=== PATIENT | female | born 1990 | race Caucasian/White ===

== ENCOUNTER 2018-06-25 16:30 | Inpatient (IN) | payer MEDICAID ==
[~2018-06-25] VITALS: Ht 157.5 cm; Wt 75.0 kg
[~2018-06-25 16:30] MED LIST: CLIN300C85 PO; IBUP-1984 PO; NITR100C PO; NITR100C6 PO; PHEN-824 PO
[2018-06-25 17:32] LABS: BASOPHILS # (AUTO) 0.1 X10'3 (0-0.2); BASOPHILS % (AUTO) 0.7 % (0-1); EOSINOPHILS % (AUTO) 0 % (0-6); HEMATOCRIT 40.6 % (35.0-45.0); HEMOGLOBIN 13.2 g/dl (12.0-16.0); LYMPHOCYTES # (AUTO) 2.4 X10'3 (1.1-4.8); LYMPHOCYTES % (AUTO) 16.8 % (21-51); MEAN CORPUSCULAR HEMOGLOBIN 28.8 PG (27.0-31.0); MEAN CORPUSCULAR HGB CONC 32.5 % (33.0-36.5); MEAN CORPUSCULAR VOLUME 88.5 FL (78-98); MEAN PLATELET VOLUME 9.4 FL (7.4-10.4); MONOCYTES # (AUTO) 1.1 X10'3 (0-0.9); MONOCYTES % (AUTO) 7.6 % (2-12); NEUTROPHILS # (AUTO) 10.8 X10'3 (1.8-7.7); NEUTROPHILS % (AUTO) 74.9 % (42-75); PLATELET COUNT 351 X10'3 (140-440); RED BLOOD COUNT 4.59 X10'6 (4.20-5.60); RED CELL DISTRIBUTION WIDTH 13.6 % (11.5-14.5); WHITE BLOOD COUNT 14.4 X10'3 (4.5-11.0)
[2018-06-25 17:46] LABS: ALANINE AMINOTRANSFERASE 25 U/L (12-78); ALBUMIN 3.6 G/DL (3.4-5.0); ALBUMIN/GLOBULIN RATIO 0.8 (1.1-1.5); ALKALINE PHOSPHATASE 56 IU/L (46-116); ANION GAP 9 (8-16); ASPARTATE AMINO TRANSFERASE 17 U/L (10-37); BILIRUBIN,TOTAL 0.5 MG/DL (0.1-1.0); BLOOD UREA NITROGEN 8 MG/DL (7-18); BUN/CREATININE RATIO 10.7 (6.6-38.0); CALCIUM 9.7 MG/DL (8.5-10.1); CHLORIDE 99 MMOL/L (99-107); CREATININE 0.75 MG/DL (0.40-0.90); GLUCOSE 102 MG/DL (70-104); POTASSIUM 3.7 MMOL/L (3.5-5.1); SODIUM 136 MMOL/L (135-145); TOTAL CARBON DIOXIDE 28.3 MMOL/L (24-32); TOTAL PROTEIN 8.2 G/DL (6.4-8.2); eGFR > 90 ML/MIN
[2018-06-25] MEDS ORDERED: iohexol 350MG/ML 100ml bottle IV ONE (18:40)
[2018-06-25 20:28] LABS: HCG SERUM QL NEGATIVE
[2018-06-25] MEDS ORDERED: morphine 10mg/ml inj. IM ONE ×2 (21:00→21:10)
[2018-06-25] MEDS ORDERED: morphine 4 MG/ML inj SYRINge IM ONE (21:05)
[2018-06-25] MEDS ORDERED: levoFLOXACIN 750MG TABLET PO ONE (22:00)
[2018-06-25] MEDS ORDERED: HYDROcodone/acetaminophen 10/325mg tab PO ONE (22:00)
[2018-06-25] MEDS ORDERED: ketorolac trometh inj. 60 MG/2 ML VIAL IM ONE (22:00)
[2018-06-25] MEDS ORDERED: IBUP-1986 PO (22:03)
[2018-06-25] MEDS ORDERED: LEVO750T21 PO (22:03)
[2018-06-25] MEDS ORDERED: ondansetron/PF 4mg/2ml inj IV PRN (22:50)
[2018-06-25] MEDS ORDERED: magnesium hydroxide 30ml (MOM) UD suspension PO PRN (22:50)
[2018-06-25] MEDS ORDERED: acetaminophen 325mg tablet PO PRN (22:50)
[2018-06-25] MEDS ORDERED: mag hydrox/Alum hydrox/simeth 30ml oral suspension PO PRN (22:50)
[2018-06-26] MEDS ORDERED: NO HOME MEDS
[2018-06-26 00:05] VITALS: BP 104/60
[2018-06-26] MEDS ORDERED: ketorolac tromethamine 15mg/ml inj. IV ONE (05:30)
[2018-06-26 06:00] VITALS: BP 113/69
[2018-06-26] MEDS ORDERED: levoFLOXACIN-Levaquin 750MG/D5 150 ML IV SCH (08:05)
[2018-06-26] MEDS: vancomycin/NS 1 GM ADD-VANTAGE 250 ML IV SCH ×3 (09:26→23:48)
[2018-06-26 10:00] VITALS: BP 137/90
[2018-06-26] MEDS ORDERED: buprenorphine/naloxone 2-0.5mg sublingual tablet SL SCH (12:00)
[2018-06-26] MEDS: enoxaparin 40mg/0.4ml syringe SUBCUT SCH (12:06)
[2018-06-26 12:42] LABS: BASOPHILS % (AUTO) 0.1 % (0-1); EOSINOPHILS # (AUTO) 0.2 X10'3 (0-0.9); EOSINOPHILS % (AUTO) 1.2 % (0-6); HEMATOCRIT 36.3 % (35.0-45.0); HEMOGLOBIN 11.8 g/dl (12.0-16.0); LYMPHOCYTES # (AUTO) 1.4 X10'3 (1.1-4.8); LYMPHOCYTES % (AUTO) 7.6 % (21-51); MEAN CORPUSCULAR HEMOGLOBIN 28.9 PG (27.0-31.0); MEAN CORPUSCULAR HGB CONC 32.5 % (33.0-36.5); MEAN CORPUSCULAR VOLUME 88.8 FL (78-98); MEAN PLATELET VOLUME 9.9 FL (7.4-10.4); MONOCYTES # (AUTO) 1.4 X10'3 (0-0.9); MONOCYTES % (AUTO) 7.4 % (2-12); NEUTROPHILS # (AUTO) 15.8 X10'3 (1.8-7.7); NEUTROPHILS % (AUTO) 83.7 % (42-75); PLATELET COUNT 317 X10'3 (140-440); RED BLOOD COUNT 4.09 X10'6 (4.20-5.60); WHITE BLOOD COUNT 18.9 X10'3 (4.5-11.0)
[2018-06-26 12:57] LABS: ALANINE AMINOTRANSFERASE 20 U/L (12-78); ALBUMIN 2.8 G/DL (3.4-5.0); ALBUMIN/GLOBULIN RATIO 0.7 (1.1-1.5); ALKALINE PHOSPHATASE 68 IU/L (46-116); ANION GAP 12 (8-16); ASPARTATE AMINO TRANSFERASE 14 U/L (10-37); BILIRUBIN,TOTAL 0.6 MG/DL (0.1-1.0); BLOOD UREA NITROGEN 13 MG/DL (7-18); BUN/CREATININE RATIO 16.3 (6.6-38.0); CALCIUM 9.2 MG/DL (8.5-10.1); CHLORIDE 101 MMOL/L (99-107); GLUCOSE 110 MG/DL (70-104); POTASSIUM 3.5 MMOL/L (3.5-5.1); SODIUM 138 MMOL/L (135-145); TOTAL CARBON DIOXIDE 24.6 MMOL/L (24-32); TOTAL PROTEIN 7.1 G/DL (6.4-8.2); eGFR 86 ML/MIN
[2018-06-26 18:00] VITALS: BP 99/44
[2018-06-26] MEDS ORDERED: LORazepam 2 mg/ml vial IV PRN (19:40)
[2018-06-26] MEDS: buprenorphine/naloxone 2-0.5mg sublingual tablet SL SCH (19:54)
[2018-06-26] MEDS: nicotine 21mg patch - 24 hr TD SCH (19:54)
[2018-06-26] MEDS ORDERED: levoFLOXACIN 750MG TABLET PO ONE (21:00)
[2018-06-26 22:00] VITALS: BP 95/48
[2018-06-26] MEDS ORDERED: VANCOMYCIN LEVEL IV ONE (23:30)
[2018-06-27] MEDS: buprenorphine/naloxone 2-0.5mg sublingual tablet SL SCH ×3 (04:20→19:45)
[2018-06-27 06:00] VITALS: BP 111/70
[2018-06-27] MEDS: lactobacillus rhamnosus 10,000 MMU CELLS/CAPSULE PO SCH ×2 (08:43→19:45)
[2018-06-27] MEDS: nicotine 21mg patch - 24 hr TD SCH (08:44)
[2018-06-27] MEDS: vancomycin/NS 1 GM ADD-VANTAGE 250 ML IV SCH (08:45)
[2018-06-27] MEDS: enoxaparin 40mg/0.4ml syringe SUBCUT SCH (08:45)
[2018-06-27 09:08] LABS: BASOPHILS % (AUTO) 0.2 % (0-1); EOSINOPHILS % (AUTO) 0.1 % (0-6); HEMATOCRIT 34.6 % (35.0-45.0); HEMOGLOBIN 11.4 g/dl (12.0-16.0); LYMPHOCYTES # (AUTO) 2.4 X10'3 (1.1-4.8); LYMPHOCYTES % (AUTO) 15.7 % (21-51); MEAN CORPUSCULAR HEMOGLOBIN 29.1 PG (27.0-31.0); MEAN CORPUSCULAR HGB CONC 33.1 % (33.0-36.5); MEAN PLATELET VOLUME 9.4 FL (7.4-10.4); MONOCYTES # (AUTO) 0.8 X10'3 (0-0.9); MONOCYTES % (AUTO) 5.2 % (2-12); NEUTROPHILS # (AUTO) 11.8 X10'3 (1.8-7.7); NEUTROPHILS % (AUTO) 78.8 % (42-75); PLATELET COUNT 324 X10'3 (140-440); RED BLOOD COUNT 3.93 X10'6 (4.20-5.60); RED CELL DISTRIBUTION WIDTH 12.9 % (11.5-14.5)
[2018-06-27 09:19] LABS: ALANINE AMINOTRANSFERASE 17 U/L (12-78); ALBUMIN 2.3 G/DL (3.4-5.0); ALBUMIN/GLOBULIN RATIO 0.6 (1.1-1.5); ALKALINE PHOSPHATASE 53 IU/L (46-116); ANION GAP 9 (8-16); ASPARTATE AMINO TRANSFERASE 11 U/L (10-37); BILIRUBIN,TOTAL 0.3 MG/DL (0.1-1.0); BLOOD UREA NITROGEN 8 MG/DL (7-18); BUN/CREATININE RATIO 9.5 (6.6-38.0); CALCIUM 8.6 MG/DL (8.5-10.1); CHLORIDE 103 MMOL/L (99-107); CREATININE 0.84 MG/DL (0.40-0.90); GLUCOSE 185 MG/DL (70-104); POTASSIUM 3.4 MMOL/L (3.5-5.1); SODIUM 138 MMOL/L (135-145); TOTAL CARBON DIOXIDE 25.7 MMOL/L (24-32); TOTAL PROTEIN 6.3 G/DL (6.4-8.2); eGFR 81 ML/MIN
[2018-06-27 10:00] VITALS: BP 104/54
[2018-06-27] MEDS ORDERED: buprenorphine/naloxone 2-0.5mg sublingual tablet SL ONE (13:50)
[2018-06-27] MEDS: vancomycin inj 1,250 MG in normal saline 250ml IV soln 250 ML IV SCH (16:42)
[2018-06-27 18:00] VITALS: BP 108/62
[2018-06-27] MEDS: levoFLOXACIN-Levaquin 750MG/D5 150 ML IV SCH ×2 (20:49→21:00)
[2018-06-27 22:00] VITALS: BP 103/51
[2018-06-27] MEDS ORDERED: levoFLOXACIN-Levaquin 750MG/D5 150 ML IV ONE (22:25)
[2018-06-28] MEDS: vancomycin inj 1,250 MG in normal saline 250ml IV soln 250 ML IV SCH ×2 (00:17→08:51)
[2018-06-28] MEDS: buprenorphine/naloxone 2-0.5mg sublingual tablet SL SCH ×2 (03:45→14:20)
[2018-06-28 06:00] VITALS: BP 98/46
[2018-06-28] MEDS: enoxaparin 40mg/0.4ml syringe SUBCUT SCH (08:55)
[2018-06-28] MEDS: nicotine 21mg patch - 24 hr TD SCH (08:55)
[2018-06-28] MEDS: lactobacillus rhamnosus 10,000 MMU CELLS/CAPSULE PO SCH (08:55)
[2018-06-28 10:00] VITALS: BP 135/81
[2018-06-28 11:13] LABS: BASOPHILS % (AUTO) 0.1 % (0-1); EOSINOPHILS # (AUTO) 0.2 X10'3 (0-0.9); EOSINOPHILS % (AUTO) 1.6 % (0-6); HEMOGLOBIN 10.9 g/dl (12.0-16.0); LYMPHOCYTES # (AUTO) 2.3 X10'3 (1.1-4.8); LYMPHOCYTES % (AUTO) 18.7 % (21-51); MEAN CORPUSCULAR HEMOGLOBIN 28.8 PG (27.0-31.0); MEAN CORPUSCULAR VOLUME 87.3 FL (78-98); MEAN PLATELET VOLUME 8.6 FL (7.4-10.4); MONOCYTES # (AUTO) 0.9 X10'3 (0-0.9); MONOCYTES % (AUTO) 7.3 % (2-12); NEUTROPHILS % (AUTO) 72.3 % (42-75); PLATELET COUNT 340 X10'3 (140-440); RED BLOOD COUNT 3.78 X10'6 (4.20-5.60); RED CELL DISTRIBUTION WIDTH 13.3 % (11.5-14.5); WHITE BLOOD COUNT 12.4 X10'3 (4.5-11.0)
[2018-06-28 11:33] LABS: ALANINE AMINOTRANSFERASE 14 U/L (12-78); ALBUMIN 2.1 G/DL (3.4-5.0); ALBUMIN/GLOBULIN RATIO 0.6 (1.1-1.5); ALKALINE PHOSPHATASE 48 IU/L (46-116); ANION GAP 5 (8-16); ASPARTATE AMINO TRANSFERASE 10 U/L (10-37); BILIRUBIN,TOTAL 0.2 MG/DL (0.1-1.0); BLOOD UREA NITROGEN 11 MG/DL (7-18); BUN/CREATININE RATIO 15.5 (6.6-38.0); CALCIUM 8.4 MG/DL (8.5-10.1); CHLORIDE 105 MMOL/L (99-107); CREATININE 0.71 MG/DL (0.40-0.90); GLUCOSE 84 MG/DL (70-104); POTASSIUM 3.8 MMOL/L (3.5-5.1); SODIUM 140 MMOL/L (135-145); TOTAL CARBON DIOXIDE 30.3 MMOL/L (24-32); TOTAL PROTEIN 5.9 G/DL (6.4-8.2); eGFR > 90 ML/MIN
[2018-06-28] MEDS ORDERED: LEVO750T21 PO (14:04)
[2018-06-28] MEDS ORDERED: VANCOMYCIN LEVEL IV ONE (15:30)
== END 2018-06-28 16:25 | disposition home or self-care (01) | DRG 137 ==
LOC: ER 16:30 → ED HOLD 22:25 → ORTHO 4S 06-26 00:10
PROVIDERS: ADMIT Hospitalist; ATTEND Family Medicine
PROC: 02HV33Z Insertion of Infusion Device into Superior Vena Cava, Percutaneous Approach (ICD-10-PCS; principal; 2018-06-25)
PROC: B548ZZA Ultrasonography of Superior Vena Cava, Guidance (ICD-10-PCS; 2018-06-25)
DX: J85.1 Abscess of lung with pneumonia (principal); F11.10 Opioid abuse, uncomplicated; F15.10 Other stimulant abuse, uncomplicated; F17.200 Nicotine dependence, unspecified, uncomplicated; L03.113 Cellulitis of right upper limb; M54.9 Dorsalgia, unspecified; Z59.0 Homelessness
CPT/HCPCS: 36415; 36556; 71045; 71046; 71250; 74176; 80053; 80202; 83605; 84703; 85025; 87040; 87070; 93306; 96372; 99285; G0378; J1650; J1885; J1956; J2060; J2270; J3370; J7030; Q9967

== ENCOUNTER 2019-11-24 01:13 | Emergency (ER) | payer MEDICAID, OTHER ==
[~2019-11-24] VITALS: Ht 160 cm; Wt 75.0 kg
--- NOTE | 2019-11-24 01:44 | NUR ---
DR SIDHU TO SEE PT
[2019-11-24] MEDS ORDERED: iohexol 300mg/ml 100ml inj. ONE (02:15)
[2019-11-24 02:35] LABS: BASOPHILS # (AUTO) 0.1 X10'3 (0-0.2); BASOPHILS % (AUTO) 0.8 % (0-1); EOSINOPHILS # (AUTO) 0.2 X10'3 (0-0.9); EOSINOPHILS % (AUTO) 2.5 % (0-6); HEMATOCRIT 36.6 % (35.0-45.0); HEMOGLOBIN 11.9 g/dl (12.0-16.0); LYMPHOCYTES # (AUTO) 2.1 X10'3 (1.1-4.8); LYMPHOCYTES % (AUTO) 24.4 % (21-51); MEAN CORPUSCULAR HEMOGLOBIN 27.6 PG (27.0-31.0); MEAN CORPUSCULAR HGB CONC 32.4 g/dL (33.0-36.5); MEAN CORPUSCULAR VOLUME 85.1 FL (78-98); MEAN PLATELET VOLUME 7.7 FL (7.4-10.4); MONOCYTES # (AUTO) 0.8 X10'3 (0-0.9); MONOCYTES % (AUTO) 9.5 % (2-12); NEUTROPHILS # (AUTO) 5.4 X10'3 (1.8-7.7); NEUTROPHILS % (AUTO) 62.8 % (42-75); PLATELET COUNT 361 X10'3 (140-440); RED CELL DISTRIBUTION WIDTH 14.1 % (11.5-14.5); WHITE BLOOD COUNT 8.6 X10'3 (4.5-11.0)
[2019-11-24 02:42] LABS: HCG SERUM QL NEGATIVE
[2019-11-24 02:48] LABS: ALANINE AMINOTRANSFERASE 25 U/L (12-78); ALBUMIN 3.3 G/DL (3.4-5.0); ALBUMIN/GLOBULIN RATIO 0.7 (1.1-1.5); ALKALINE PHOSPHATASE 112 IU/L (46-116); ANION GAP 6 (8-16); ASPARTATE AMINO TRANSFERASE 24 U/L (10-37); BILIRUBIN,TOTAL 0.3 MG/DL (0.1-1.0); BLOOD UREA NITROGEN 17 MG/DL (7-18); BUN/CREATININE RATIO 18.3 (6.6-38.0); CALCIUM 9.2 MG/DL (8.5-10.1); CHLORIDE 101 MMOL/L (99-107); CREATININE 0.93 MG/DL (0.40-0.90); GLUCOSE 119 MG/DL (70-104); POTASSIUM 3.7 MMOL/L (3.5-5.1); SODIUM 136 MMOL/L (135-145); TOTAL CARBON DIOXIDE 29.2 MMOL/L (24-32); TOTAL PROTEIN 8.3 G/DL (6.4-8.2); eGFR 71 ML/MIN
[2019-11-24] MEDS ORDERED: CefTRIAXone 250MG IM Kit w/LIDOcaine IM ONE (04:45)
[2019-11-24] MEDS ORDERED: azithromycin 250mg tablet PO ONE (04:45)
[2019-11-24] MEDS ORDERED: VALA10002 PO (04:45)
[2019-11-24] MEDS ORDERED: valacyclovir 500mg tablet PO SCH (04:45)
[2019-11-24 05:14] VITALS: BP 134/77
[2019-11-25 11:09] LABS: RPR Reactive (Non Reactive)
== END 2019-11-24 05:20 | disposition home or self-care (01) ==
LOC: ER 01:13
DX: R59.0 Localized enlarged lymph nodes (principal); N76.6 Ulceration of vulva; F17.200 Nicotine dependence, unspecified, uncomplicated; F11.90 Opioid use, unspecified, uncomplicated; Z59.0 Homelessness; Z56.0 Unemployment, unspecified; Z90.89 Acquired absence of other organs; Z79.899 Other long term (current) drug therapy
CPT/HCPCS: 36415; 70491; 80053; 84703; 85025; 86592; 87491; 87529; 87591; 96372; 99285; J0696; Q9967

== ENCOUNTER 2020-02-04 01:04 | Emergency (ER) | payer MEDICAID, OTHER ==
[~2020-02-04] VITALS: Ht 157.5 cm; Wt 72.0 kg
[~2020-02-04 01:04] MED LIST changes: -CLIN300C85 PO; -IBUP-1984 PO; -NITR100C PO; -NITR100C6 PO; -PHEN-824 PO; +VALA10002 PO
[2020-02-04 01:12] VITALS: BP 129/86
--- NOTE | 2020-02-04 02:00 | NUR ---
I put her siderail up with her permission because she is drifting off to sleep prn while on her phone
[2020-02-04] MEDS ORDERED: sulfamethoxazole/trimethoprim DS (800/160mg) tablet PO ONE (05:05)
[2020-02-04] MEDS ORDERED: SULF1TAB49 PO (05:06)
== END 2020-02-04 05:32 | disposition home or self-care (01) ==
LOC: ER 01:04
DX: L02.413 Cutaneous abscess of right upper limb (principal); F12.90 Cannabis use, unspecified, uncomplicated; F11.90 Opioid use, unspecified, uncomplicated; Z87.440 Personal history of urinary (tract) infections; Z56.0 Unemployment, unspecified; Z59.0 Homelessness; Z90.89 Acquired absence of other organs; Z79.2 Long term (current) use of antibiotics
CPT/HCPCS: 76882; 99284

== ENCOUNTER 2020-06-27 13:40 | Emergency (ER) | payer MEDICAID, OTHER ==
[~2020-06-27] VITALS: Ht 157.5 cm; Wt 73.8 kg
[2020-06-27 14:00] VITALS: BP 136/94
[2020-06-27] MEDS ORDERED: CefTRIAXone 250MG IM Kit w/LIDOcaine IM ONE (14:15)
[2020-06-27] MEDS ORDERED: azithromycin 250mg tablet PO ONE (14:15)
[2020-06-27] MEDS ORDERED: penicillin G benzathine 1.2 million unit/2ml syringe IM ONE (14:15)
== END 2020-06-27 14:48 | disposition home or self-care (01) ==
LOC: ER 13:40
DX: A51.39 Other secondary syphilis of skin (principal); F12.90 Cannabis use, unspecified, uncomplicated; F11.90 Opioid use, unspecified, uncomplicated; Z56.0 Unemployment, unspecified; Z59.0 Homelessness; Z90.89 Acquired absence of other organs
CPT/HCPCS: 36415; 86592; 87491; 87591; 96372; 99284; J0561; J0696